=== PATIENT | male | born 1995 | race African-American/Black ===

== ENCOUNTER 2022-03-11 08:10 | Emergency (ER) | payer BC ==
[~2022-03-11] VITALS: Ht 182.9 cm; Wt 145.6 kg
[2022-03-11 08:18] VITALS: BP 157/90
--- NOTE | 2022-03-11 08:25 | NUR ---
27M presents to ED with c/o of upper lip swelling x1day. Pt reports having dental appointment yesterday for teeth whitening tx, noted slight swelling last night and worsening swelling this morning. Pt denies pain or med use. Swelling is noted upon assessment of upper lip.
[2022-03-11] MEDS ORDERED: diphenhydrAMINE 50 MG CAP PO ONE (09:35)
[2022-03-11] MEDS ORDERED: DIPH25TA53 PO (09:44)
[2022-03-11] MEDS ORDERED: PRED20TA6 PO (09:44)
[2022-03-11] MEDS ORDERED: FAMO-90 PO (09:44)
[2022-03-11] MEDS ORDERED: EPIN1KIT31 IM (09:44)
--- NOTE | 2022-03-11 09:57 | NUR ---
Patient discharged with v/s stable. Written and verbal after care instructions given and explained. Patient alert, oriented and verbalized understanding of instructions. Ambulatory with steady gait. All questions addressed prior to discharge. ID band removed. Patient advised to follow up with PMD. Rx of Benadryl, Epipen, Pepcid and Prednisone given. Patient educated on indication of medication including possible reaction and side effects. Opportunity to ask questions provided and answered.
== END 2022-03-11 09:57 | disposition home or self-care (01) ==
LOC: MED 08:10
DX: R22.0 Localized swelling, mass and lump, head (principal); T78.3XXA Angioneurotic edema, initial encounter
CPT/HCPCS: 99283; Q0163